=== PATIENT | female | born 2000 | race Caucasian/White ===

== ENCOUNTER 2020-06-26 17:29 | Outpatient (REF) | payer OTHER, SELFPAY | END 2020-06-26 17:30 | disposition home or self-care (01) | LOC: HO.LAB 17:29 | PROVIDERS: PCP Pediatrics; Visit Provider Internal Medicine | DX: Z20.828 Contact with and (suspected) exposure to other viral communicable diseases (principal) | CPT/HCPCS: U0003 ==